=== PATIENT | male | born 2000 | race Two or more races ===

== ENCOUNTER 2024-08-02 01:40 | Emergency (ER) | payer OTHER ==
[~2024-08-02] VITALS: Ht 175.3 cm; Wt 95.5 kg
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
[2024-08-02 02:00] VITALS: PULSE 74; RESP 20; O2SAT 97
[2024-08-02] MEDS ORDERED: CYCL-838 PO (02:45)
[2024-08-02] MEDS ORDERED: ACET650T12 PO (02:45)
[2024-08-02] MEDS ORDERED: IBUP-1454 PO (02:45)
[2024-08-02] MEDS: IBUPROFEN 600 MG TAB PO ONE (03:03)
[2024-08-02] MEDS: ACETAMINOPHEN 325 MG TAB PO ONE (03:03)
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
[2024-08-02 03:45] VITALS: BP 122/52; PULSE 72; RESP 17; TEMP 98; O2SAT 99
== END 2024-08-02 03:45 | disposition home or self-care (01) ==
LOC: ER 01:40 → EDBD 01:40 → ER 03:45
DX: M79.652 Pain in left thigh (principal); Z79.1 Long term (current) use of non-steroidal anti-inflammatories (NSAID); V89.2XXA Person injured in unspecified motor-vehicle accident, traffic, initial encounter; Y93.89 Activity, other specified; Y92.410 Unspecified street and highway as the place of occurrence of the external cause; Y99.8 Other external cause status